=== PATIENT | male | born 1950 | race Caucasian/White ===

== ENCOUNTER → 2021-12-15 09:35 | Outpatient (CLI) | payer MEDICARE, OTHER, SELFPAY ==
[2021-12-15 11:11] LABS: COVID19 -Nasal RAPID Negative (Negative)
== END ==
PROVIDERS: Visit Provider Family Medicine Sleep Medicine
DX: Z20.822 Contact with and (suspected) exposure to COVID-19 (principal)
CPT/HCPCS: 87635; C9803

== ENCOUNTER 2021-12-17 08:39 | Day surgery (SDC) | payer MEDICARE, OTHER, SELFPAY ==
--- NOTE | 2021-12-17 | PATH_ITS ---
[facility] Accession Number: [id number] . 01 Material submitted: . PART A: colon - CECAL POLYP PART B: colon - TRANSVERSE COLON POLYP PART C: colon - SIGMOID COLON POLYPS . 02 Diagnosis: A. Cecum, Polyp, Biopsy: Tubular adenoma. . B. Transverse Colon, Polyp, Biopsy: Tubular adenoma. . C. Sigmoid Colon, Polyps, Biopsies: Tubular adenoma in three of four fragments. Hyperplastic polyp, one fragment. MRV 12/22/2021 1524 Local . 02 Electronically signed: . Lissette Seals MD, Pathologist NPI- [id number] . 01 Gross description: . Part A: CECAL POLYP: Received in formalin is 1 fragment(s) of montiel, soft tissue measuring 0.3 x 0.2 x 0.1 cm submitted entirely in 1 cassette(s) Part B: TRANSVERSE COLON POLYP: Received in formalin is 1 fragment(s) of montiel, soft tissue measuring 0.9 x 0.7 x 0.2 cm submitted entirely in 1 cassette(s) Part C: SIGMOID COLON POLYPS: Received in formalin are multiple fragment(s) of montiel, soft tissue measuring 0.7 x 0.5 x 0.2 cm in aggregate submitted entirely in 1 cassette(s) /CPE 12/18/2021 0742 Local . 02 Pathologist provided ICD-10: D12.0, D12.3, D12.5 . 02 CPT . 757600, 819798, 509525 Specimen Comment: A courtesy copy of this report has been sent to [phone] Performed at: 01 [facility] [address] [place] [address] [address], [place], [place] [id number] MD Arya Choudhury MD Phone: [phone] Performed at: 02 [facility] [address] [place] [id number] MD Lissette Seals MD Phone: [phone]
[2021-12-17 09:14] VITALS: BP 148/82; PULSE 72; RESP 16; TEMP 36.3; O2SAT 96; BMI 29.4
[2021-12-17] MEDS: LACTATED RINGERS 1,000 ML 42 ML IV (09:37)
[2021-12-17 09:38] VITALS: BMI 29.4
[2021-12-17 09:44] VITALS: BMI 29.4
--- NOTE | 2021-12-17 09:51 | SUR.PREOP ---
0940 check a glucose on pt due to pt stated he felt hypoglycemic and has trouble with low glucose.
--- NOTE | 2021-12-17 10:09 | PM.HP.1 ---
History of Present Illness History of Present Illness Date Patient Seen: 12/17/21 Chief complaint: SDC Narrative: Colon cancer screening. History of Fecal incontinence Patient History Surgical History (Updated 12/17/21 @ 09:38 by Alka Rao RN) H/O: hemorrhoidectomy History of medial meniscus repair of left knee Hx of tonsillectomy Family & Social History Social History: household members spouse Tobacco & Substance use: Tobacco type cigarettes Smoking Status Former smoker alcohol intake frequency a few times a month Substance Use Type does not use Meds Home Medications and Allergies Home Medications Medication Instructions Recorded Confirmed Type No Known Home Medications 12/16/21 12/16/21 History Allergies Allergy/AdvReac Type Severity Reaction Status Date / Time No Known Drug Allergies Allergy Verified 12/17/21 09:11 Review of Systems Review of Systems Narrative: Negative Exam Vital Signs (past 8 hours): - 12/17/21 09:14 Temperature 97.3 F L Pulse Rate 72 Respiratory Rate 16 Blood Pressure 148/82 H Pulse Oximetry 96 Oxygen Delivery Method Room Air Narrative Exam Narrative: Awake alert and oriented x3, pupils equal round reactive to light, oropharynx clear, heart regular rate and rhythm, lungs clear to auscultation bilaterally, abdomen nontender and nondistended, extremities without edema, no gross neurologic deficits noted Assessment & Plan Assessment & Plan narrative: Fecal incontinence, colon cancer screening for colonoscopy today Time Spent With Patient Critical Care time: I spent a total of [] minutes of critical care time on this patient's care today; this time is exclusive of procedural time.
--- NOTE | 2021-12-17 10:38 | PM.OP.COLON ---
Operative Date/Time/Diagnoses Date of procedure: 12/17/21 Procedure & Clinicians Study performed: Colonoscopy with snare polypectomy Indications: Colon cancer screening. This is the patient's 1st colonoscopy. History of fecal incontinence. Procedure Notes Procedure in detail: Prior to the procedure, history and physical was performed, and patient medications and allergies were reviewed. Preprocedure nursing history and assessment was reviewed. Patient identification and proposed procedure were verified by the physician and nurse in the procedure room. The physical status of the patient was reassessed after the procedure. After informed consent was obtained including risks, benefits, and alternatives, the scope was passed under direct vision. Throughout the procedure, the patient's blood pressure, pulse, and oxygen saturations were monitored continuously. The colonoscope was introduced through the anus and advanced to the cecum as identified by the appendiceal orifice and ileocecal valve. The patient tolerated the procedure well. Bowel prep was deemed adequate to detect polyps greater than 5 mm. MAYTE and perianal examinations were unremarkable. Retroflexion in the rectum revealed 2 columns of grade 2 internal hemorrhoids. No obvious fistulous opening was appreciated. Multiple medium-sized diverticula were noted in the descending and sigmoid colon A total 6 sessile polyps measuring between 3-6 mm were removed from the cecum, transverse, and sigmoid colon (4 polyps). Complications: other (EBL minimal. No complications) Impression: Internal hemorrhoids Left-sided colonic diverticulosis Total of 6 subcentimeter polyps removed from the cecum, transverse colon and sigmoid colon Post-procedure Plan for aftercare: Follow-up pathology results Repeat colonoscopy at a date to be determined based on pathology results Follow-up in GI clinic Resume home medications High fiber diet Patient has a contact number available for emergencies. The signs and symptoms of potential delayed complications were discussed with the patient. Return to normal activities tomorrow. Written discharge instructions were provided to the patient. Discharge home with escort
[2021-12-17 10:41] VITALS: BP 131/73; PULSE 73; RESP 13; TEMP 36; O2SAT 94
[2021-12-17 10:46] VITALS: BP 118/71; PULSE 75; RESP 16; O2SAT 95
[2021-12-17 10:51] VITALS: BP 114/76; PULSE 77; RESP 16; O2SAT 96
[2021-12-17 10:56] VITALS: BP 132/75; PULSE 72; RESP 13; O2SAT 97
[2021-12-17 11:01] VITALS: BP 127/77; PULSE 67; RESP 16; O2SAT 96
--- NOTE | 2021-12-17 11:03 | SUR.PHASEI ---
Discharge instructions reviewed with pt and he verbalized understanding.
== END 2021-12-17 11:25 | disposition home or self-care (01) ==
PROVIDERS: PCP Internal Medicine; Referring Provider Internal Medicine; Visit Provider Internal Medicine
PROC: 0DJD8ZZ Inspection of Lower Intestinal Tract, Via Natural or Artificial Opening Endoscopic (ICD-10-PCS; CPT 45378; principal; 2021-12-17 10:00)
DX: Z12.11 Encounter for screening for malignant neoplasm of colon (principal); K57.30 Diverticulosis of large intestine without perforation or abscess without bleeding; K64.1 Second degree hemorrhoids; D12.0 Benign neoplasm of cecum; D12.3 Benign neoplasm of transverse colon; D12.5 Benign neoplasm of sigmoid colon
CPT/HCPCS: 45385; J2704